=== PATIENT | male | born 1980 | race Caucasian/White ===

== ENCOUNTER 2018-09-30 08:33 | Emergency (ER) | payer BC, OTHER ==
[2018-09-30] MEDS ORDERED: Tetracaine 0.5% OPTH.SOL 4 ML* 1 DROP BTL RIGHT EYE ONE (09:03)
[2018-09-30] MEDS ORDERED: Fluorescein Sodium TOPICAL* 1 MG TEST STRIP OPHTHALMIC ONE (09:03)
--- NOTE | 2018-09-30 09:10 | ED ---
Throat Pain/Nasal Congestion - HPI Summary HPI Summary: Pt is a 37 y/o M presenting to the ED with a chief complaint of eye pain onset 3 -4 days ago. He states he was weed whacking when a stick flew up and hit his R eye, causing immediate sharp pain. The pain has progressively gotten worse. He denies fever. He does not wear contacts. - History of Current Complaint Chief Complaint: EDEyeProblem Time Seen by Provider: 09/30/18 08:45 Hx Obtained From: Patient Onset/Duration: Sudden Onset, Lasting Days, Still Present Severity: Moderate Associated Signs And Symptoms: Positive: Negative - Allergies/Home Medications Allergies/Adverse Reactions: Allergies Allergy/AdvReac Type Severity Reaction Status Date / Time acetaminophen [From Tylenol] Allergy Mild Nausea Verified 09/30/18 08:37 PMH/Surg Hx/FS Hx/Imm Hx Previously Healthy: Yes Endocrine/Hematology History: Denies: Hx Diabetes Respiratory History: Reports: Hx Seasonal Allergies Musculoskeletal History: Reports: Hx Arthritis - Surgical History Surgery Procedure, Year, and Place: left tibia repair Infectious Disease History: No Infectious Disease History: Denies: Traveled Outside the [place] in Last 30 Days - Family History Known Family History: Positive: Hypertension, Diabetes - Social History Alcohol Use: Occasionally Hx Substance Use: No Substance Use Type: Reports: None Hx Tobacco Use: Yes Smoking Status (MU): Heavy Every Day Tobacco Smoker Review of Systems Negative: Fever Positive: Other - pain All Other Systems Reviewed And Are Negative: Yes Physical Exam - Summary Physical Exam Summary: Appearance: The patient is well-nourished in no acute distress and in no acute pain. Skin: The skin is warm and dry and skin color reflects adequate perfusion. HEENT: The head is normocephalic and atraumatic. The pupils are round and responsive to light. The conjunctivae are clear and without drainage. There is a small amount of Fluoroscene pickup on the inferior sclera of the R eye. Can see his R fundus fairly well and his disc margin is sharp. Nares are patent and without drainage. Mouth reveals moist mucous membranes and the throat is without erythema and exudate. The external ears are intact. The ear canals are patent and without drainage. The tympanic membranes are intact. Neck: The neck is supple with full range of motion and non-tender. There are no carotid bruits. There is no neck vein distension. Respiratory: Chest is non-tender. Lungs are clear to auscultation and breath sounds are symmetrical and equal. Cardiovascular: Heart is regular rate and rhythm. There is no murmur or rub auscultated. There is no peripheral edema and pulses are symmetrical and equal. Abdomen: The abdomen is soft and non-tender. There are normal bowel sounds heard in all four quadrants and there is no organomegaly palpated. Musculoskeletal: There is no back tenderness noted. Extremities are non-tender with full range of motion. There is good capillary refill. There is no peripheral edema or calf tenderness elicited. Neurological: Patient is alert and oriented to person, place and time. The patient has symmetrical motor strength in all four extremities. Cranial nerves are grossly intact. Deep tendon reflexes are symmetrical and equal in all four extremities. Psychiatric: The patient has an appropriate affect and does not exhibit any anxiety or depression. Triage Information Reviewed: Yes Vital Signs On Initial Exam: Initial Vitals Temp Pulse Resp BP Pulse Ox 98.0 F 62 12 128/77 100 09/30/18 08:35 09/30/18 08:35 09/30/18 08:35 09/30/18 08:35 09/30/18 08:35 Vital Signs Reviewed: Yes Diagnostics - Vital Signs Vital Signs Temp Pulse Resp BP Pulse Ox 09/30/18 08:35 98.0 F 62 12 128/77 100 - Laboratory Lab Statement: Any lab studies that have been ordered have been reviewed, and results considered in the medical decision making process. - CT Maxillofacial CT CT Interpretation Completed By: Radiologist Summary of CT Findings: 1. There is a minimally displaced fracture through the maxillary spine with surrounding soft tissue swelling. 2. Extensive untreated dental and periodontal disease involving nearly every tooth in the oral cavity. 3. Moderately mucosal disease in the right maxillary sinus is likely odontogenic. ED physician has reviewed this report. EENT Course/Dx - Course Course Of Treatment: Mr. Presley was weed [employer] 4 or 5 days ago and an unidentified object flew up and hit him in the right eye. He had immediate pain which has worsened continuously since. He also has had blurred vision since. He denies diplopia. The light does not particularly bother him but he is unable to open his eye without severe pain. Tetracaine and fluorescein were instilled in his right eye and he was then able to open it and I can get a better examination. His pupil was round and about 2-3 mm. I could see his retina pretty well and note that the fundus was sharp but couldn't see the whole thing. There didn't appear to be any blood in the anterior or the posterior chambers. I do not have access to a slit lamp. There was a small line of floor seeing pickup inferiorly on the sclera. He did get some relief from his symptomatology with the tetracaine. I did not see any foreign bodies. With him able to open his right eye I could see that there was some mild periorbital swelling on the right his nose was nontender with out a septal hematoma. He still continued to complain of significant pain when looking around the room and moving his eye. Extraocular muscles were completely intact without causing diplopia. I obtained a a maxillofacial CT because he started significant pain and the length of time that this is been going on. There was a fracture of his nasal bone which she says is oriented. There was some associated swelling. There was some fluid in the right maxillary sinus also. There was no orbital fracture. I'm not sure why his symptomatology is lasted so long. I'm going to treat him with sulfacetamide ophthalmic solution and flurbiprofen for symptoms and have him follow closely with ophthalmology. - Diagnoses Provider Diagnoses: Abrasion of sclera of right eye, Orbit trauma, right Discharge - Sign-Out/Discharge Documenting (check all that apply): Patient Departure Patient Received Moderate/Deep Sedation with Procedure: No - Discharge Plan Condition: Stable Disposition: HOME Prescriptions: Flurbiprofen 0.03% OPTH.WILLIE* [Ocufen Oph*] 1 drop RIGHT EYE SEE INSTRUCTIONS #1 btl Sulfacetamide 10 % OPTH.WILLIE* [Sulamyd 10% Opth*] 1 drop RIGHT EYE Q4H #1 btl Referrals: Campbell GLORIA,Sanju Doll [Primary Care Provider] - Additional Instructions: Please follow up with your primary care provider within the next 2-3 days. Return to the emergency department with any new or worsening symptoms. - Billing Disposition and Condition Condition: STABLE Disposition: Home - Attestation Statements Document Initiated by Scribe: Yes Documenting Scribe: Lianne Woo Provider For Whom Scribe is Documenting (Include Credential): Blaine Mireles MD. Scribe Attestation: I, Lianne Woo, scribed for Blaine Mireles MD. on 09/30/18 at 1156. Scribe Documentation Reviewed: Yes Provider Attestation: The documentation as recorded by the pennieiblucia, Lianne Woo accurately reflects the service I personally performed and the decisions made by me, Blaine Mireles MD. Status of Scribe Document: Viewed
[2018-09-30 11:21] VITALS: BP 137/82
== END 2018-09-30 11:21 | disposition home or self-care (01) ==
LOC: ED 08:33
DX: S05.01XA Injury of conjunctiva and corneal abrasion without foreign body, right eye, initial encounter (principal); W22.8XXA Striking against or struck by other objects, initial encounter; Y93.H2 Activity, gardening and landscaping; Y92.9 Unspecified place or not applicable; F17.210 Nicotine dependence, cigarettes, uncomplicated; Z88.6 Allergy status to analgesic agent
CPT/HCPCS: 70486; 99282; A9270-GY

== ENCOUNTER 2018-11-20 16:43 | Emergency (ER) | payer OTHER ==
[2018-11-20 17:12] VITALS: BP 123/76
--- NOTE | 2018-11-20 18:15 | ED ---
Upper Extremity Pain - HPI Summary HPI Summary: 38-year-old male presents with shoulder injury today. He states he ended up falling off his truck and injured his left shoulder. He denies any other injury. Denies any chest pain or shortness of breath. No neck pain. No head injury or loss consciousness. He is right-handed. Has no medical conditions. - History of Current Complaint Chief Complaint: EDExtremityUpper Stated Complaint: LT SHOULDER INJURY PER PT Time Seen by Provider: 11/20/18 17:33 - Allergies/Home Medications Allergies/Adverse Reactions: Allergies Allergy/AdvReac Type Severity Reaction Status Date / Time acetaminophen [From Tylenol] Allergy Mild Nausea Verified 09/30/18 08:37 PMH/Surg Hx/FS Hx/Imm Hx Endocrine/Hematology History: Denies: Hx Diabetes Respiratory History: Reports: Hx Seasonal Allergies Musculoskeletal History: Reports: Hx Arthritis - Surgical History Surgery Procedure, Year, and Place: left tibia repair Infectious Disease History: No Infectious Disease History: Denies: Traveled Outside the [place] in Last 30 Days - Family History Known Family History: Positive: Hypertension, Diabetes - Social History Alcohol Use: Occasionally Hx Substance Use: No Substance Use Type: Reports: None Hx Tobacco Use: Yes Smoking Status (MU): Heavy Every Day Tobacco Smoker Review of Systems Negative: Fever Negative: Chest Pain Negative: Shortness Of Breath Positive: Myalgia - left shoulder pain All Other Systems Reviewed And Are Negative: Yes Physical Exam Triage Information Reviewed: Yes Vital Signs On Initial Exam: Initial Vitals Temp Pulse Resp BP Pulse Ox 98.4 F 92 17 123/76 99 11/20/18 17:09 11/20/18 17:09 11/20/18 17:09 11/20/18 17:09 11/20/18 17:09 Vital Signs Reviewed: Yes Appearance: Positive: Well-Appearing Skin: Positive: Warm, Dry Head/Face: Positive: Normal Head/Face Inspection Eyes: Positive: Normal, Conjunctiva Clear ENT: Positive: Pharynx normal Respiratory/Lung Sounds: Positive: Clear to Auscultation, Breath Sounds Present Cardiovascular: Positive: Normal, RRR Musculoskeletal: Positive: Limited @ - left shoulder, Other - tenderness left shoulder, good pulses,nontender left elbow, Neurological: Positive: Normal Psychiatric: Positive: Normal Diagnostics - Vital Signs Vital Signs Temp Pulse Resp BP Pulse Ox 11/20/18 17:09 98.4 F 92 17 123/76 99 - Laboratory Lab Statement: Any lab studies that have been ordered have been reviewed, and results considered in the medical decision making process. - Radiology shoulder Radiology Interpretation Completed By: ED Physician Summary of Radiographic Findings: no fracture Course/Dx - Course Course Of Treatment: 38-year-old male presents with shoulder injury today. He states he ended up falling off his truck and injured his left shoulder. He denies any other injury. Denies any chest pain or shortness of breath. No neck pain. No head injury or loss consciousness. He is right-handed. Has no medical conditions. On exam tenderness of her shoulder. Neurovascular intact. X-ray shows no fracture. Patient eloped before could discuss results. - Diagnoses Differential Diagnosis/HQI/PQRI: Positive: Fracture (Closed), Strain, Sprain Provider Diagnoses: Left shoulder pain Discharge ED - Sign-Out/Discharge Documenting (check all that apply): Patient Departure Patient Received Moderate/Deep Sedation with Procedure: No - Discharge Plan Condition: Good Disposition: ELOPEMENT Referrals: Mary Lou Gustafson MD [Primary Care Provider] - - Billing Disposition and Condition Condition: GOOD Disposition: Elopement - Attestation Statements Provider Attestation: I was available for consult. This patient was seen by the DELLA. The patient was not presented to, seen by, or examined by me. Kian Chand MD
== END 2018-11-20 19:14 | disposition left against medical advice (07) ==
LOC: ED 16:43
DX: M25.512 Pain in left shoulder (principal); F17.200 Nicotine dependence, unspecified, uncomplicated; Z88.6 Allergy status to analgesic agent
CPT/HCPCS: 99282